=== PATIENT | female | born 1975 | race Caucasian/White ===

== ENCOUNTER 2018-05-30 18:45 | Emergency (ER) | payer MEDICARE, MEDICAID ==
[~2018-05-30] VITALS: Ht 167.6 cm; Wt 61.2 kg
[2018-05-30] MEDS ORDERED: GABA-845 PO (19:35)
[2018-05-30] MEDS ORDERED: ALBU17IN2 INH (19:35)
[2018-05-30] MEDS ORDERED: ADV100INH INH (19:35)
[2018-05-30] MEDS ORDERED: SERT-141 PO (19:35)
[2018-05-30] MEDS ORDERED: LEVO125T4 PO (19:35)
[2018-05-30] MEDS ORDERED: OMEP10CASR PO (19:35)
[2018-05-30] MEDS ORDERED: LIPI20TA PO (19:36)
--- NOTE | 2018-05-30 20:36 | REP ---
Clinical: Right upper quadrant abdominal pain. Technique: Real time mejía scale ultrasound evaluation using curved array transducer. Findings: Liver and pancreas are normal in contour, size, echogenicity without focal hepatic or pancreatic lesion identified. Gallbladder is normal and without gallstones, wall thickening, or pericholecystic fluid. No biliary ductal dilatation is appreciated and the common bile duct measures 2 mm diameter. The right kidney is normal in reniform shape without hydronephrosis measuring 10.4 x 3.4 x 4.0 cm. No ascites in the visualized right upper quadrant. Impression: Normal right upper quadrant ultrasound. Electronically Signed by Adal Pickett MD 05/30/2018 08:27 P
[2018-05-30 20:55] VITALS: BP 154/81
[2018-05-30] MEDS ORDERED: NORCO 5/325MG TABLET (BULK FOR ED) PO ONE (21:15)
== END 2018-05-30 21:19 | disposition home or self-care (01) ==
LOC: M ED 18:45
DX: K80.20 Calculus of gallbladder without cholecystitis without obstruction (principal); K21.9 Gastro-esophageal reflux disease without esophagitis; J45.909 Unspecified asthma, uncomplicated; N80.9 Endometriosis, unspecified; Z85.850 Personal history of malignant neoplasm of thyroid; Z79.899 Other long term (current) drug therapy; Z88.0 Allergy status to penicillin; Z88.1 Allergy status to other antibiotic agents; Z88.8 Allergy status to other drugs, medicaments and biological substances; Z88.5 Allergy status to narcotic agent

== ENCOUNTER 2023-08-05 12:57 | Emergency (ER) | payer MEDICAID, MEDICARE ==
[~2023-08-05] VITALS: Ht 167.6 cm; Wt 63.8 kg
[~2023-08-05 12:57] MED LIST: ADV100INH INH; ALBU6.7H6 INH; GABA-284 PO; LEVO125T4 PO; LIPI20TA PO; OMEP10CASR PO; SERT-141 PO
[2023-08-05 14:14] LABS: BASO % 0.3 % (0.0-1.0); HEMATOCRIT 44.9 % (36.0-47.0); HEMOGLOBIN 14.8 g/dl (12.0-15.5); LYMPH # 1.5 10^3/uL (1.5-5.0); LYMPH % 16.4 % (24.0-44.0); MEAN CORPUSCULAR HEMOGLOBIN 28.7 pg (27.0-33.0); MONO # 0.5 10^3/uL (0.0-0.8); MONO % 5.1 % (2.0-8.0); NEUTROPHILS % 77.9 % (36.0-66.0); PLATELET COUNT, AUTOMATED 352 10^3/uL (150-450); RED BLOOD COUNT 5.16 10^6/uL (4.00-5.40)
[2023-08-05 14:30] LABS: INR 1.05; PARTIAL THROMBOPLASTIN TIME 30.1 SECONDS (24.8-34.2); PROTHROMBIN TIME 13.4 SECONDS (12.5-14.5)
[2023-08-05 14:46] LABS: LIPASE 30 U/L (12-53)
[2023-08-05 14:47] LABS: AMYLASE 23 U/L (30-118)
[2023-08-05 15:15] LABS: ALBUMIN 3.7 G/DL (3.2-5.2); ALKALINE PHOSPHATASE 82 U/L (46-116); ALT/SGPT 12 U/L (7.0-40); AST/SGOT 13 U/L (<34); BILIRUBIN,DIRECT 0.2 MG/DL (<0.4); BILIRUBIN,TOTAL 0.6 MG/DL (0.3-1.2); BLOOD UREA NITROGEN 13 MG/DL (9-23); CALCIUM LEVEL 9.3 MG/DL (8.5-10.1); CARBON DIOXIDE LEVEL 21 MMOL/L (20-31); CHLORIDE LEVEL 107 MMOL/L (98-107); CREATININE FOR GFR 0.68 MG/DL (0.55-1.30); GLOMERULAR FILTRATION RATE > 60.0 (>58); GLUCOSE, FASTING 80 MG/DL (60-100); SODIUM LEVEL 140 MMOL/L (136-145); TOTAL PROTEIN 7.1 G/DL (5.7-8.2)
[2023-08-05] MEDS: NS 1,000 ML IV ONE (16:29)
[2023-08-05 18:08] VITALS: BP 185/80; TEMP 97.2; O2SAT 93
== END 2023-08-05 18:09 | disposition home or self-care (01) ==
LOC: M ED 12:57
DX: R11.2 Nausea with vomiting, unspecified (principal); R19.7 Diarrhea, unspecified; K21.9 Gastro-esophageal reflux disease without esophagitis; I10 Essential (primary) hypertension; E78.5 Hyperlipidemia, unspecified; J45.909 Unspecified asthma, uncomplicated; C73 Malignant neoplasm of thyroid gland; Z92.3 Personal history of irradiation; F12.10 Cannabis abuse, uncomplicated; Z88.0 Allergy status to penicillin; Z88.1 Allergy status to other antibiotic agents; Z88.5 Allergy status to narcotic agent; Z88.8 Allergy status to other drugs, medicaments and biological substances; Z79.52 Long term (current) use of systemic steroids; Z79.83 Long term (current) use of bisphosphonates; Z79.02 Long term (current) use of antithrombotics/antiplatelets; Z79.899 Other long term (current) drug therapy